=== PATIENT | female | born 1995 | race African-American/Black ===

== ENCOUNTER 2019-07-08 08:07 | Emergency (ER) | payer OTHER ==
[~2019-07-08] VITALS: Ht 170.2 cm; Wt 68.2 kg
[2019-07-08] MEDS ORDERED: CYCL10TA PO (09:22)
[2019-07-08] MEDS ORDERED: IBUP-1022 PO (09:22)
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
[2019-07-08 09:39] VITALS: BP 123/80
== END 2019-07-08 09:50 | disposition home or self-care (01) ==
LOC: M ED 08:07
DX: S16.1XXA Strain of muscle, fascia and tendon at neck level, initial encounter (principal); V49.40XA Driver injured in collision with unspecified motor vehicles in traffic accident, initial encounter; Y92.410 Unspecified street and highway as the place of occurrence of the external cause; M54.5 Low back pain

== ENCOUNTER 2020-02-17 18:50 | Emergency (ER) | payer OTHER ==
[~2020-02-17] VITALS: Ht 167.6 cm; Wt 65.9 kg
[2020-02-17 18:50] VITALS: BP 136/86
[~2020-02-17 18:50] MED LIST: CYCL-707 PO; IBUP-1022 PO
[2020-02-17] MEDS ORDERED: VALA1TAB5 PO ×2 (19:21→19:32)
== END 2020-02-17 19:32 | disposition home or self-care (01) ==
LOC: M ED 18:50
DX: K13.79 Other lesions of oral mucosa (principal); R59.1 Generalized enlarged lymph nodes

== ENCOUNTER 2021-01-31 09:05 | Emergency (ER) | payer OTHER ==
[~2021-01-31] VITALS: Ht 170.2 cm; Wt 66.5 kg
[~2021-01-31 09:05] MED LIST changes: +VALA1TAB5 PO
[2021-01-31 10:11] LABS: BASO % 0.4 % (0.0-1.0); EOS # 0.1 10^3/uL (0.0-0.5); EOS % 1.2 % (0.0-3.0); HEMATOCRIT 39.1 % (36.0-47.0); HEMOGLOBIN 12.2 g/dl (12.0-15.5); LYMPH # 1.7 10^3/uL (1.5-5.0); LYMPH % 21.7 % (24.0-44.0); MEAN CORPUSCULAR HEMOGLOBIN 27.9 pg (27.0-33.0); MEAN CORPUSCULAR HGB CONC 31.2 g/dl (32.0-36.5); MEAN CORPUSCULAR VOLUME 89.3 fl (80.0-96.0); MONO # 0.5 10^3/uL (0.0-0.8); MONO % 5.9 % (2.0-8.0); NEUTROPHILS # 5.6 10^3/uL (1.5-8.5); NEUTROPHILS % 70.4 % (36.0-66.0); PLATELET COUNT, AUTOMATED 253 10^3/uL (150-450); RED BLOOD COUNT 4.38 10^6/uL (4.00-5.40)
[2021-01-31] MEDS ORDERED: PYRI1TAB5 PO (11:04)
[2021-01-31] MEDS ORDERED: CIPR500T39 PO (11:04)
[2021-01-31 11:12] VITALS: BP 131/78
== END 2021-01-31 11:14 | disposition home or self-care (01) ==
LOC: M ED 09:05
DX: N39.0 Urinary tract infection, site not specified (principal); N10 Acute pyelonephritis; Z87.448 Personal history of other diseases of urinary system